=== PATIENT | female | born 1995 | race African-American/Black ===

== ENCOUNTER 2021-04-22 18:24 | Emergency (ER) | payer OTHER ==
[2021-04-22] MEDS ORDERED: Ondansetron ODT 4 MG TAB ONE (19:09)
[2021-04-22] MEDS ORDERED: Acetaminophen 500 MG TAB ONE (19:48)
[2021-04-23 17:42] LABS: SARS-CoV-2 PCR by NAA Not Detected (NotDetected)
== END 2021-04-22 19:59 | disposition home or self-care (01) ==
LOC: BURERS 18:24
DX: S06.9X1A Unspecified intracranial injury with loss of consciousness of 30 minutes or less, initial encounter (principal); R11.10 Vomiting, unspecified; D50.9 Iron deficiency anemia, unspecified; F17.210 Nicotine dependence, cigarettes, uncomplicated; W01.190A Fall on same level from slipping, tripping and stumbling with subsequent striking against furniture, initial encounter; Z20.822 Contact with and (suspected) exposure to COVID-19
CPT/HCPCS: 70450; Q0162; U0003; U0005

== ENCOUNTER 2021-07-07 08:39 | Emergency (ER) | payer OTHER, SELFPAY ==
[2021-07-07 09:09] LABS: #Basophils 0.1 thou/uL (0.0-0.2); #Eosinphils 0.1 thou/uL (0.0-0.7); #Lymphocytes 2.3 thou/uL (1.20-3.40); #Monocytes 0.9 thou/uL (0.11-0.59); #Neutrophils 7.3 thou/uL (1.40-6.50); %Basophils 0.6 % (0.0-1.0); %Eosinophils 0.7 % (0.0-10.0); %Lymphocytes 21.5 % (21.0-51.0); %Monocytes 8.6 % (0.0-10.0); %Neutrophils 68.6 % (42.0-75.0); Hemoglobin 13.6 g/dL (12.0-16.0); Mean Corpuscular HGB CONC 32.6 g/dL (32.0-36.0); Mean Corpuscular Volume 76.7 fL (78.0-98.0); Mean Platelet Volume 6.2 fL (7.4-10.4); Platelet Count 410 thou/uL (130-400); RBC Distribution Width 15.6 % (11.5-14.5); Red Blood Cell (RBC) Count 5.43 mill/uL (4.20-5.40); White Blood Cell (WBC) Count 10.7 thou/uL (4.8-10.8)
[2021-07-07] MEDS ORDERED: Ondansetron PF 4 MG/2 ML Vial ONE (09:24)
[2021-07-07] MEDS ORDERED: Morphine 4 MG/ML VIAL ONE (09:24)
[2021-07-07 09:26] LABS: ALT (SGPT) 11 U/L (8-55); AST (SGOT) 15 U/L (5-34); Albumin 3.6 g/dL (3.5-5.0); Alkaline Phosphatase 105 U/L (40-110); Anion Gap 13 mmol/L (10-20); BUN (Urea Nitrogen) 6 mg/dL (7.0-18.7); Bilirubin, Total 0.3 mg/dL (0.2-1.2); Calc. Creatinine Clearance 0 mL/min (70-130); Calcium 9.2 mg/dL (7.8-10.44); Carbon Dioxide 22 mmol/L (22-29); Chloride 112 mmol/L (98-107); Globulin 3.5 g/dL (2.4-3.5); Glucose 94 mg/dL (70-105); Potassium 4.6 mmol/L (3.5-5.1); Protein, Total 7.1 g/dL (6.0-8.3); Sodium 142 mmol/L (136-145)
[2021-07-07 09:43] LABS: Bilirubin Negative (Negative); Blood, Urine Negative (Negative); Clarity Clear (Clear); Glucose, Urine (Dipstick) Negative (Negative); Ketone, Urine Negative (Negative); Leukocyte Negative (Negative); Nitrite Negative (Negative); Protein, Urine (Dipstick) Negative (Neg-Trace); pH, Urine 7.5 (5.0-9.0)
[2021-07-07 09:46] LABS: Pregnancy Test - Urine (BHCG) Negative (Negative)
[2021-07-07 09:47] LABS: Pregu Control Background? CLEAR/WHITE (CLR/WHITE); Pregu Control Bar Appear? YES (CONTROL BAR)
[2021-07-07] MEDS ORDERED: Iopamidol 370 76% 100 ML VIAL ONE (15:08)
== END 2021-07-07 12:12 | disposition home or self-care (01) ==
LOC: BURERS 08:39
DX: R10.13 Epigastric pain (principal)
CPT/HCPCS: 36415; 74177; 80053; 81003; 81025; 83605; 83690; 85025; 96374; 96375; J2270; J2405; Q9967

== ENCOUNTER 2021-12-12 19:04 | Emergency (ER) | payer SELFPAY ==
[2021-12-12] MEDS ORDERED: diphenhydrAMINE 50 MG/ML VIAL ONE (20:48)
[2021-12-12] MEDS ORDERED: Clindamycin 150 MG CAP ONE (20:48)
[2021-12-12] MEDS ORDERED: Ketorolac Tromethamine 30 MG/ML VIAL ONE (20:48)
[2021-12-12] MEDS ORDERED: traMADol HCl 50 MG TAB ONE (21:48)
== END 2021-12-12 21:50 | disposition home or self-care (01) ==
LOC: BURERS 19:04
DX: G43.909 Migraine, unspecified, not intractable, without status migrainosus (principal); K04.7 Periapical abscess without sinus; K02.9 Dental caries, unspecified; I10 Essential (primary) hypertension
CPT/HCPCS: 96374; 96375; J1200; J1885

== ENCOUNTER 2021-12-19 14:15 | Emergency (ER) | payer SELFPAY ==
[2021-12-19] MEDS ORDERED: Iopamidol 370 76% 100 ML VIAL FS ONE (14:16)
[2021-12-19] MEDS ORDERED: Ondansetron PF 4 MG/2 ML Vial ONE (14:45)
[2021-12-19] MEDS ORDERED: Morphine 4 MG/ML VIAL ONE (14:45)
[2021-12-19 14:49] LABS: #Basophils 0.1 thou/uL (0.0-0.2); #Eosinphils 0.1 thou/uL (0.0-0.7); #Lymphocytes 2.8 thou/uL (1.20-3.40); #Monocytes 0.6 thou/uL (0.11-0.59); #Neutrophils 6.1 thou/uL (1.40-6.50); %Lymphocytes 28.6 % (21.0-51.0); %Monocytes 6.3 % (0.0-10.0); %Neutrophils 63.1 % (42.0-75.0); Hemoglobin 12.9 g/dL (12.0-16.0); Mean Corpuscular HGB CONC 34.2 g/dL (32.0-36.0); Mean Corpuscular Hemoglobin 27.2 pg (27.0-31.0); Mean Corpuscular Volume 79.5 fL (78.0-98.0); Mean Platelet Volume 6.2 fL (7.4-10.4); Platelet Count 295 thou/uL (130-400); RBC Distribution Width 14.4 % (11.5-14.5); Red Blood Cell (RBC) Count 4.76 mill/uL (4.20-5.40); White Blood Cell (WBC) Count 9.6 thou/uL (4.8-10.8)
[2021-12-19 15:02] LABS: ALT (SGPT) 16 U/L (8-55); AST (SGOT) 14 U/L (5-34); Alkaline Phosphatase 88 U/L (40-110); Anion Gap 12 mmol/L (10-20); BUN (Urea Nitrogen) 8 mg/dL (7.0-18.7); Bilirubin, Total 0.4 mg/dL (0.2-1.2); Calc. Creatinine Clearance 0 mL/min (70-130); Calcium 8.9 mg/dL (7.8-10.44); Carbon Dioxide 26 mmol/L (22-29); Chloride 108 mmol/L (98-107); Globulin 2.7 g/dL (2.4-3.5); Glucose 76 mg/dL (70-105); Potassium 4.1 mmol/L (3.5-5.1); Protein, Total 6.7 g/dL (6.0-8.3); Sodium 142 mmol/L (136-145)
[2021-12-19 15:10] LABS: BHCG - Serum Negative (NEGATIVE); Pregs Control Background? CLEAR/WHITE (CLR/WHITE); Pregs Control Bar Appear? YES (CONTROL BAR)
[2021-12-19 16:28] LABS: Bilirubin Negative (Negative); Blood, Urine Trace (Negative); Clarity Cloudy (Clear); Glucose, Urine (Dipstick) Negative (Negative); Ketone, Urine Negative (Negative); Leukocyte Large (Negative); Nitrite Negative (Negative); Protein, Urine (Dipstick) Negative (Neg-Trace); Urobilinogen 0.2 mg/dL (Less than 2); pH, Urine 6.5 (5.0-9.0)
[2021-12-19] MEDS ORDERED: Ketorolac Tromethamine 30 MG/ML VIAL ONE (16:29)
[2021-12-19 16:33] LABS: Bacteria/HPF 2+ HPF (None Seen); RBC/HPF 0-3 HPF (0-3); Squamous Epithelial 21-50 HPF (0-3); WBC/HPF 21-50 HPF (0-3)
[2021-12-19 16:34] LABS: Trichomonas/HPF Rare HPF (None Seen)
== END 2021-12-19 17:05 | disposition home or self-care (01) ==
LOC: BURERS 14:15
DX: S06.9X9A Unspecified intracranial injury with loss of consciousness of unspecified duration, initial encounter (principal); S63.92XA Sprain of unspecified part of left wrist and hand, initial encounter; S43.402A Unspecified sprain of left shoulder joint, initial encounter; N39.0 Urinary tract infection, site not specified; R10.816 Epigastric abdominal tenderness; M54.6 Pain in thoracic spine; R10.812 Left upper quadrant abdominal tenderness; R10.811 Right upper quadrant abdominal tenderness; M54.50 Low back pain, unspecified; I10 Essential (primary) hypertension; W10.9XXA Fall (on) (from) unspecified stairs and steps, initial encounter
CPT/HCPCS: 70450; 71260; 72125; 74177; 80053; 81003; 81015; 84703; 85025; 87086; 96374; 96375; J1885; J2270; J2405; Q9967

== ENCOUNTER 2022-06-29 22:19 | Emergency (ER) | payer SELFPAY ==
[2022-06-30 00:40] LABS: Pregnancy Test - Urine (BHCG) Negative (Negative); Pregu Control Background? CLEAR/WHITE (CLR/WHITE); Pregu Control Bar Appear? YES (CONTROL BAR)
[2022-06-30] MEDS ORDERED: Bupivacaine 0.5% 10 ML VIAL ONE ×2 (00:40→01:00)
[2022-06-30] MEDS ORDERED: Clindamycin 150 MG CAP ONE (01:01)
[2022-06-30] MEDS ORDERED: Morphine 4 MG/ML VIAL ONE (01:59)
== END 2022-06-30 02:05 | disposition home or self-care (01) ==
LOC: BURERS 22:19
DX: K08.89 Other specified disorders of teeth and supporting structures (principal); I10 Essential (primary) hypertension
CPT/HCPCS: 64400; 81025; 96372; J2270; J3490

== ENCOUNTER 2023-05-30 18:05 | Emergency (ER) | payer SELFPAY ==
[~2023-05-30 18:05] MED LIST: Iopamidol 370 76% 100 ML VIAL ONE
[2023-05-30] MEDS ORDERED: fentaNYL 50 mcg/mL 1 mL Vial ONE (18:50)
[2023-05-30] MEDS ORDERED: Ondansetron PF 4 MG/2 ML Vial ONE (18:50)
[2023-05-30 19:00] LABS: #Basophils 0.1 thou/uL (0.0-0.2); #Eosinphils 0.1 thou/uL (0.0-0.7); #Lymphocytes 1.3 thou/uL (1.20-3.40); #Monocytes 0.6 thou/uL (0.11-0.59); #Neutrophils 12.6 thou/uL (1.40-6.50); %Eosinophils 0.3 % (0.0-10.0); %Lymphocytes 8.7 % (21.0-51.0); %Monocytes 4.3 % (0.0-10.0); %Neutrophils 85.7 % (42.0-75.0); Hematocrit 41.2 % (36.0-47.0); Hemoglobin 13.3 g/dL (12.0-16.0); Mean Corpuscular HGB CONC 32.3 g/dL (32.0-36.0); Mean Corpuscular Hemoglobin 26.5 pg (27.0-31.0); Mean Corpuscular Volume 82.2 fl (78.0-98.0); Mean Platelet Volume 6.8 fL (7.4-10.4); Platelet Count 304 10x3/uL (130-400); RBC Distribution Width 12.4 % (11.5-14.5); Red Blood Cell (RBC) Count 5.02 mill/uL (4.20-5.40); White Blood Cell (WBC) Count 14.7 10x3/uL (4.8-10.8)
[2023-05-30 19:18] LABS: ALT (SGPT) 15 U/L (8-55); AST (SGOT) 17 U/L (5-34); Albumin 4.4 g/dL (3.5-5.0); Alkaline Phosphatase 62 U/L (40-110); Anion Gap 17 mmol/L (10-20); BUN (Urea Nitrogen) 11 mg/dL (7.0-18.7); Bilirubin, Total 0.4 mg/dL (0.2-1.2); Calc. Creatinine Clearance 0 mL/min (70-130); Calcium 9.5 mg/dL (7.8-10.44); Carbon Dioxide 22 mmol/L (22-29); Chloride 102 mmol/L (98-107); Estimated GFR 57; Glucose 88 mg/dL (70-105); Protein, Total 8.4 g/dL (6.0-8.3); Sodium 137 mmol/L (136-145)
[2023-05-30 19:47] LABS: Bilirubin Negative (Negative); Blood, Urine Large (Negative); Clarity Cloudy (Clear); Glucose, Urine (Dipstick) Negative (Negative); Ketone, Urine Negative (Negative); Leukocyte Small (Negative); Nitrite Negative (Negative); Pregnancy Test - Urine (BHCG) Negative (Negative); Pregu Control Background? CLEAR/WHITE (CLR/WHITE); Pregu Control Bar Appear? YES (CONTROL BAR); Protein, Urine (Dipstick) Negative (Neg-Trace); Urobilinogen 0.2 mg/dL (Less than 2); pH, Urine 5.5 (5.0-9.0)
[2023-05-30] MEDS ORDERED: Ketorolac Tromethamine 30 MG/ML VIAL ONE (19:50)
[2023-05-30 19:53] LABS: CAUTI Indications for Culture Pelvic or flank pain; Squamous Epithelial 0-3 HPF (0-3)
[2023-05-30 19:55] LABS: Bacteria/HPF 2+ HPF (None Seen); Sperm/HPF 1+ HPF (None Seen)
[2023-05-30 19:57] LABS: Urine Culture Reflex Yes Yes
[2023-05-30] MEDS ORDERED: Sulfameth/Trimethoprim DS 800-160mg TAB ONE (21:08)
== END 2023-05-30 21:15 | disposition home or self-care (01) ==
LOC: BURERS 18:05
DX: N83.202 Unspecified ovarian cyst, left side (principal); N39.0 Urinary tract infection, site not specified; I10 Essential (primary) hypertension; Z87.891 Personal history of nicotine dependence
CPT/HCPCS: 74177; 80053; 81001; 81025; 83605; 85025; 87086; 96374; 96375; J1885; J2405; J3010; Q9967

== ENCOUNTER 2024-01-01 17:22 | Emergency (ER) | payer BC, SELFPAY ==
[2024-01-01] MEDS ORDERED: Ketorolac Tromethamine 60 MG/2 ML VIAL ONE (17:42)
== END 2024-01-01 18:38 | disposition home or self-care (01) ==
LOC: BURERS 17:22
DX: M25.552 Pain in left hip (principal); G43.909 Migraine, unspecified, not intractable, without status migrainosus; F17.200 Nicotine dependence, unspecified, uncomplicated
CPT/HCPCS: 72170; 96372; J1885